=== PATIENT | male | born 1990 | race Two or more races ===

== ENCOUNTER 2024-04-28 15:59 | Emergency (ER) | payer OTHER ==
[2024-04-28] MEDS ORDERED: Sodium Chloride 0.9% 10 ML Syringe FLUSH PRN (16:08)
[2024-04-28] MEDS ORDERED: Ketamine 500 mg/10 ML MDV IV ONE (16:08)
[2024-04-28] MEDS: Ketorolac 30 MG/ML SDV IVPUSH ONE (16:10)
[2024-04-28] MEDS: Bacitracin Oint 1 GM U/D Packet TOP ONE (16:52)
== END 2024-04-28 22:47 | disposition home or self-care (01) ==
LOC: DL.ED 15:59
DX: L02.01 Cutaneous abscess of face (principal); Z86.16 Personal history of COVID-19
CPT/HCPCS: 87070; 96374; 99283; J1885; 87077; 87186